=== PATIENT | female | born 1960 | race Caucasian/White ===

== ENCOUNTER 2016-11-17 09:44 | Inpatient (IN) | payer OTHER ==
[~2016-11-17] VITALS: Ht 177.8 cm; Wt 129.1 kg
[2016-11-17] MEDS ORDERED: DULO1CAP3 PO (10:35)
[2016-11-17] MEDS ORDERED: LISI10TA3 PO (10:35)
[2016-11-17] MEDS ORDERED: CHOL5000 PO (10:35)
[2016-11-18 06:00] VITALS: BP 154/85; PULSE 89; RESP 20; TEMP 98.2; O2SAT 95
[2016-11-18] MEDS ORDERED: DEXAMETHASONE SOD PHOS 20 MG/5 ML VIAL ONE (06:05)
[2016-11-18] MEDS ORDERED: SODIUM CHLOR 0.9% 250 ML INJ 250 ML ONE (06:05)
[2016-11-18] MEDS ORDERED: VANCOMYCIN HCL 1000 MG VIAL ONE (06:05)
[2016-11-18] MEDS ORDERED: ceFAZolin 2 GM PREMIX 50 ML ONE (06:05)
[2016-11-18] MEDS: LACTATED RINGER'S 1000 ML IV SCH (06:10)
[2016-11-18] MEDS ORDERED: GENTAMICIN SULFATE 80 MG/2 ML VIAL ONE (06:23)
[2016-11-18] MEDS ORDERED: MIDAZOLAM HCL 5 MG/5 ML VIAL ONE (06:24)
[2016-11-18] MEDS ORDERED: ceFAZolin 2 GM PREMIX 50 ML IV SCH (06:30)
[2016-11-18] MEDS ORDERED: VANCOMYCIN 1000 MG/NS 250 ML (for <70 kg) IV SCH ×2 (06:30)
[2016-11-18] MEDS ORDERED: ROPIVACAINE PERI-ARTICULAR INJECTION. PERIART SCH ×5 (06:30)
[2016-11-18] MEDS ORDERED: SODIUM CHLORID 0.9% 500 ML IV SCH (06:30)
[2016-11-18] MEDS ORDERED: SODIUM CHLORIDE 0.9% IV SCH ×2 (06:30→10:00)
[2016-11-18] MEDS ORDERED: POVIDONE IODINE 7.5% SCRUB 118 ML BOTTLE TOP SCH (06:30)
[2016-11-18] MEDS ORDERED: METOPROLOL TARTRATE 25 MG TAB PO PRN (06:30)
[2016-11-18] MEDS ORDERED: ceFAZolin 1,000 MG/NS 100 ML IV SCH ×2 (06:30)
[2016-11-18] MEDS ORDERED: INSULIN HUMAN REGULAR 1,000 UNITS/10 ML VIAL SQ PRN (06:30)
[2016-11-18] MEDS ORDERED: DEXAMETHASONE SOD PHOS 20 MG/5 ML VIAL IV ONE (06:30)
[2016-11-18] MEDS ORDERED: TRANEXAMIC ACID IV SCH ×2 (06:30→10:00)
[2016-11-18] MEDS ORDERED: FAMOTIDINE 20 MG/2 ML VIAL ONE (06:31)
--- NOTE | 2016-11-18 06:49 | HHI.DCPOC ---
Discharge Care Plan Diagnosis: (1) Primary localized osteoarthrosis, lower leg (2) Status post total knee replacement, right Your Health Problems Are: Difficulty with ADL Goals to Promote Your Health * To prevent worsening of your condition and complications * To maintain your health at the optimal level Directions to Meet Your Goals Take your medications as prescribed Follow your dietary instruction Follow activity as directed Keep your appointments as scheduled Take your immunizations and boosters as scheduled If your symptoms worsen call your PCP, if no PCP go to Urgent Care Center or Emergency Room Smoking is Dangerous to Your Health. Avoid second hand smoke Call the 24-hour hour crisis hotline for domestic abuse at Kirk Clemens Nov 18, 2016 06:49
--- NOTE | 2016-11-18 06:50 | HHI.FF ---
Face to Face Verification Diagnosis: (1) Primary localized osteoarthrosis, lower leg (2) Status post total knee replacement, right Physical Therapy Gait training, Transfer training, bed to chair Knee: Total knee Right LE Weight Bearing: WB as tolerated Right LE Range of Motion: Active ROM Nursing Nursing: Rupesh teaching, Dressing changes I have seen patient Homa Carias on 11/18/16. My clinical findings support the need for the requested home health care services because: Limited ability to care for self High risk of falls I certify that my clinical findings support that this patient is homebound because: Post-op weakness Unsteady gait/balance Kirk Clemens Nov 18, 2016 06:50
[2016-11-18] MEDS ORDERED: WALKER WHEELS/F1 MIS (06:52)
[2016-11-18] MEDS ORDERED: CPMMACHINE (06:52)
[2016-11-18] MEDS ORDERED: COMMODE 3-IN-11 MIS (06:52)
[2016-11-18] MEDS ORDERED: ACETAMINOPHEN 1000 MG/100 ML VIAL IV ONE (07:37)
--- NOTE | 2016-11-18 08:27 | PD.OP ---
cc: Abel Jones MD Operative Report Date of Surgery: Nov 18, 2016 Preoperative Diagnosis: Right knee severe osteoarthritis Postoperative Diagnosis: Same Procedure: Right total knee arthroplasty Anesthesia: Adductor canal block and general Surgeon: Abel Jones Program Support Clerk(s): JOANN Thornton The surgical procedure was assisted by my Advanced Registered Nurse Practitioner. My TRUST ADVISOR presence was necessary throughout this case for the manipulation and positioning of the surgical extremity. My TRUST ADVISOR was assisting me throughout the duration of this procedure. The skill set of an Advance Registered Nurse Practitioner was medically necessary to complete this procedure. During the surgical case, the cdl service technician was working at the back table and the Advance Registered Nurse Practitioner was directly assisting me. Operation and Findings: IMPLANTS: DePuy Attune: Patella: size 38. Femur, posterior stabilized size 6. Tibia, rotating platform size 6. Tibial insert, rotating platform, posterior stabilized size 5 mm thickness. ESTIMATED BLOOD LOSS: 250 cc TOURNIQUET TIME: 39 minutes at 300 mmHg pressure. JUSTIFICATION FOR PROCEDURE: The patient has end-stage osteoarthritis to the knee. There is an attached conservative measures pathway form in the chart that describes the nonoperative measures that were undertaken prior to consideration of surgical management. The patient understood the risks and benefits of surgical management. See my office notes for further details PROCEDURE: The patient was brought back to the operative theatre. Adequate anesthesia was obtained. The patient received intravenous vancomycin and Ancef. The lower extremity was prepped and draped in the usual sterile fashion.The leg was exsanguinated, the tourniquet was raised. A standard anterior incision was performed followed by medial parapatellar arthrotomy was performed. End-stage arthritis was identified. Osteotomy of the patella was performed. We drilled holes for the patella. We trialed the patella component. We placed an intramedullary guide into the distal femur. We ultimately resected 11 mm off of the distal femur in 5 degrees of valgus. The remnants of the ACL and PCL were resected. Osteotomy of the proximal tibia was performed, resecting 5 mm off of the medial side. This was done with 3 degrees of posterior slope using an extramedullary guide. The distal end of the guide was placed in the mid aspect of the ankle. The femur was sized, and four chamfer cuts were completed in 3 of external rotation. We then cut the central box in the distal femur to replace the PCL. We resected the remnants of the menisci and removed osteophytes off of the femur and tibia. We then trialed the knee. We punched the tibia for the keel, and then used standard technique to cement in components. Excess cement was removed. We trialed the knee again and the final polyethylene thickness was chosen to provide extension to 0 degrees, and flexion of 140 degrees to gravity. The ligaments were appropriately balanced. Lateral release was necessary to obtain excellent patellofemoral tracking. The tourniquet was released and adequate hemostasis was obtained. An intra- articular injection of a ropivacaine cocktail was injected. The posterior knee was inspected for excess cement, which was removed. The final polyethylene was put into position after thorough irrigation. We then closed deep fascia with a #2 Stratafix followed by skin with 2-0 Vicryl followed by jorge. Postop plan is to weight-bear as tolerated. DVT prophylaxis will be performed with Stewart, LUCINDA yeboah, early mobilization, and Lovenox followed by aspirin. Abel Jones MD Nov 18, 2016 08:27
[2016-11-18] MEDS ORDERED: NORC5TAB PO (08:28)
[2016-11-18] MEDS ORDERED: ASPI325T PO (08:28)
[2016-11-18] MEDS ORDERED: ENOX40P SQ (08:28)
[2016-11-18] MEDS ORDERED: ZOLPIDEM TARTRATE 5 MG TAB PO PRN (08:30)
[2016-11-18] MEDS ORDERED: ALUMINUM/MAGNESIUM/SIMETH 30 ML CUP PO PRN (08:30)
[2016-11-18] MEDS ORDERED: NALOXONE HCL 0.4 MG/ML AMP IV PRN (08:30)
[2016-11-18] MEDS ORDERED: MAGNESIUM HYDROXIDE SUSP 30 ML CUP PO PRN (08:30)
[2016-11-18] MEDS ORDERED: MORPHINE SULFATE 4 MG/ML INJ IV PUSH PRN (08:30)
[2016-11-18] MEDS ORDERED: ONDANSETRON HCL 4 MG/2 ML VIAL IVP PRN (08:30)
[2016-11-18] MEDS ORDERED: SODIUM CHLORIDE 0.9% FLUSH 5 ML FLUSH IVF PRN (08:30)
[2016-11-18] MEDS ORDERED: diphenhydrAMINE HCL 50 MG/ML VIAL IV PRN (08:30)
[2016-11-18] MEDS ORDERED: BISACODYL 10 MG SUPP PR PRN (08:30)
[2016-11-18] MEDS ORDERED: Post-op Orders (for Pharmacy) MISC XX ONE (08:30)
[2016-11-18] MEDS ORDERED: fentaNYL CITRATE 250 MCG/5 ML AMP ONE (09:00)
[2016-11-18] MEDS: LISINOPRIL 10 MG TAB PO SCH (09:00)
[2016-11-18] MEDS: SODIUM CHLORIDE 0.9% FLUSH 5 ML FLUSH IVF SCH ×2 (09:00→20:32)
[2016-11-18] MEDS: DULoxetine HCl DR 60 MG CAP PO SCH (09:00)
[2016-11-18] MEDS ORDERED: *morphine SULFATE 8 MG/ML PERIprocedure ONLY ONE ×2 (09:13→09:44)
[2016-11-18] MEDS: SODIUM CHLOR 0.9% 1000 ML INJ 1,000 ML IV SCH ×3 (09:20→22:41)
--- NOTE | 2016-11-18 09:47 | RADRPT ---
EXAM DATE/TIME: 11/18/2016 09:21 [facility] COMPARISON: No previous studies available for comparison. INDICATIONS : Total right knee replacement. MEDICAL HISTORY : Osteoarthritis. SURGICAL HISTORY : None. ENCOUNTER: Initial ACUITY: 1 day PAIN SCORE: Non-responsive. LOCATION: Right knee FINDINGS: Right total knee arthroplasty is present. Hardware is intact. Alignment is anatomic. CONCLUSION: Satisfactory appearance post right TKA Ross Palafox MD on November 18, 2016 at 9:43 Board Certified Radiologist. This report was verified electronically.
[2016-11-18 10:38] VITALS: BP 153/82; PULSE 85; RESP 17; TEMP 95.3; O2SAT 95
[2016-11-18] MEDS: ACETAMINOPHEN/HYDROcodone 325 MG/5 MG TAB PO PRN ×2 (10:43→17:42)
[2016-11-18] MEDS ORDERED: BUPIVACAINE HCL PF 0.5% 30 ML VIAL NB ONE (12:51)
[2016-11-18] MEDS ORDERED: ONDANSETRON HCL 4 MG/2 ML VIAL IV PUSH ONE (15:06)
[2016-11-18] MEDS ORDERED: PROPOFOL 200 MG/20 ML AMP IV ONE (15:06)
[2016-11-18] MEDS ORDERED: NEOSTIGMINE 3 MG/3 ML SYR IV ONE (15:06)
--- NOTE | 2016-11-18 15:22 | PD.CONS ---
HPI Service [facility] Consult Requested By Dr. Jones Reason for Consult Medical management Primary Care Physician Heather Nash MD Diagnoses: History of Present Illness This is a pleasant 56-year-old female with past medical history of obesity and hypertension who is admitted after undergoing a right total knee arthroplasty today with Dr. Jones for the indication of osteoarthritis. Today the patient states that her pain has been controlled. She states she has been in good physical health recently with controlled blood pressure. Review of Systems Except as stated in HPI: all other systems reviewed are Neg Past Family Social History Allergies: Coded Allergies: Bactrim (Verified Allergy, Severe, MOUTH BLISTERS, 11/18/16) Macrodantin (Verified Allergy, Severe, SWELLING, 11/18/16) Past Medical History Hypertension Depression Obesity Reported Medications As per med rec Family History Reviewed and noncontributory Social History She does not smoke or drink. Physical Exam Vital Signs Vital Signs Date Time Temp Pulse Resp B/P Pulse Ox O2 Delivery O2 Flow Rate FiO2 11/18/16 11:45 2 11/18/16 10:38 95.3 85 17 153/82 95 11/18/16 10:05 97.7 87 16 156/88 95 Nasal Cannula 3 11/18/16 09:45 96 16 156/86 95 Nasal Cannula 3 11/18/16 09:30 87 15 161/85 95 Nasal Cannula 4 11/18/16 09:15 89 15 150/85 93 Nasal Cannula 4 11/18/16 08:53 97.6 96 15 187/93 94 Nasal Cannula 4 11/18/16 06:44 87 14 123/69 98 11/18/16 06:30 81 14 117/74 99 11/18/16 06:20 82 16 122/78 97 11/18/16 06:20 97 Nasal Cannula 3 11/18/16 06:00 98.2 89 20 154/85 95 Physical Exam GENERAL: Well-nourished, well-developed patient. SKIN: Warm and dry. HEAD: Normocephalic. EYES: No scleral icterus. No injection or drainage. NECK: Supple, trachea midline. No JVD or lymphadenopathy. CARDIOVASCULAR: Regular rate and rhythm without murmurs, gallops, or rubs. RESPIRATORY: Breath sounds equal bilaterally. No accessory muscle use. GASTROINTESTINAL: Abdomen soft, non-tender, nondistended. EXTREMITIES: No cyanosis, or edema. NEUROLOGICAL: Awake, alert, and oriented x 3. Non-focal. Laboratory Laboratory Tests Test 11/18/16 05:58 Blood Type O POSITIVE Antibody Screen NEGATIVE Blood Bank Comment Assessment and Plan Assessment and Plan -Status post right total knee arthroplasty. Management per Dr. Dickinson. -Hypertension. Continue lisinopril. -Depression. Continue Cymbalta. -Lovenox for DVT prophylaxis. Deborah Hernandez MD Nov 18, 2016 15:21
[2016-11-18 16:20] VITALS: BP 125/66; PULSE 102; RESP 16; TEMP 95.4; O2SAT 93
[2016-11-18 20:19] VITALS: BP 121/69; PULSE 99; RESP 19; TEMP 97.8; O2SAT 97
[2016-11-18] MEDS ORDERED: SENNOSIDES 8.6 MG TAB PO SCH (22:15)
[2016-11-18] MEDS: MAGNESIUM HYDROXIDE SUSP 30 ML CUP PO SCH (22:39)
[2016-11-19 00:21] VITALS: BP 103/58; PULSE 104; RESP 18; TEMP 96.5; O2SAT 92
[2016-11-19 04:15] VITALS: BP 119/78; PULSE 104; RESP 18; TEMP 97.9; O2SAT 95
[2016-11-19] MEDS: LACTATED RINGER'S 1000 ML IV SCH (06:30)
[2016-11-19 07:01] LABS: HEMATOCRIT 32.3 % (35.0-46.0); MEAN CELL VOLUME 92.6 FL (80.0-100.0); MEAN CORPUSCULAR HEMOGLOBIN 31.3 PG (27.0-34.0); MEAN CORPUSCULAR HGB CONC 33.8 % (32.0-36.0); PLATELET COUNT 223 TH/MM3 (150-450); RED BLOOD COUNT 3.49 MIL/MM3 (4.00-5.30); RED CELL DISTRIBUTION WIDTH 13.1 % (11.6-17.2); REVIEW FLAG FINAL; WHITE BLOOD COUNT 8.8 TH/MM3 (4.0-11.0)
[2016-11-19] MEDS ORDERED: DEXAMETHASONE SOD PHOS 20 MG/5 ML VIAL IV ONE (07:45)
[2016-11-19 08:00] VITALS: BP 127/75; PULSE 99; RESP 18; TEMP 97.8; O2SAT 98
[2016-11-19] MEDS ORDERED: ENOXAPARIN SODIUM 40 MG/0.4 ML SYRINGE SQ SCH (08:00)
[2016-11-19] MEDS: LISINOPRIL 10 MG TAB PO SCH (08:07)
[2016-11-19] MEDS: MAGNESIUM HYDROXIDE SUSP 30 ML CUP PO SCH (08:07)
[2016-11-19] MEDS: DULoxetine HCl DR 60 MG CAP PO SCH (08:07)
[2016-11-19] MEDS: SODIUM CHLORIDE 0.9% FLUSH 5 ML FLUSH IVF SCH (08:08)
[2016-11-19] MEDS: ACETAMINOPHEN/HYDROcodone 325 MG/5 MG TAB PO PRN ×2 (08:54→13:32)
[2016-11-19 12:15] VITALS: BP 130/67; PULSE 101; RESP 16; TEMP 95.5; O2SAT 94
--- NOTE | 2016-11-19 13:00 | PD.ORT.PN ---
Subjective Post Op Day #: 1 Subjective Remarks Patient OOB in chair with minimal pain. Moderate soreness. Patient has not voided yet and needs to before discharge. Patient requesting to go home today. Objective Vitals Vital Signs Date Time Temp Pulse Resp B/P Pulse Ox O2 Delivery O2 Flow Rate FiO2 11/19/16 12:15 95.5 101 16 130/67 94 11/19/16 08:00 97.8 99 18 127/75 98 11/19/16 07:30 Room Air 11/19/16 04:15 97.9 104 18 119/78 95 11/19/16 00:21 96.5 104 18 103/58 92 11/18/16 20:19 97.8 99 19 121/69 97 11/18/16 16:20 95.4 102 16 125/66 93 I/O 11/18/16 11/18/16 11/18/16 11/19/16 11/19/16 11/19/16 07:00 15:00 23:00 07:00 15:00 23:00 Intake Total 1252 ml 840 ml 1710 ml Output Total 400 ml 750 ml 550 ml Balance 852 ml 90 ml 1160 ml Intake Oral 840 ml 240 ml IV Total 252 ml 1470 ml Other 1000 ml Output Urine Total 200 ml 750 ml 550 ml Estimated Blood Loss 200 ml # Bowel Movements 0 0 Result Diagram: 11/19/16 0623 Procedures Right TKA Objective Remarks The patient's dressing was changed with scant serosanguineous drainage. Incision is well approximated with surgical clips intact. No redness or s/s of infection. Mild ecchymosis and hyperemia. No calf tenderness or swelling. + SILT. EHL/TA/G intact. 2+ pedal pulse. Moderate LE swelling. Assessment & Plan Ortho Post Op Day #: 1 Problem List: Assessment and Plan POD #1: Right TKA 1. WBAT RLE 2. Lovenox for DVT prophylaxis 3. Ice to the right knee PRN 4. Stable for discharge home with home health today. Kirk Clemens Nov 19, 2016 13:00
[2016-11-19] MEDS ORDERED: DOCUSATE SODIUM 100 MG CAP PO SCH (21:00)
[2016-11-19] MEDS ORDERED: MULTIVITAMINS/MINERALS THERAPEUTIC TAB PO SCH (21:00)
--- NOTE | 2016-11-22 21:08 | HHI.DS ---
Discharge Summary Admission Date Nov 18, 2016 at 05:35 Discharge Date: Nov 19, 2016 Admitting Diagnosis Primary localized OA, lower leg Status post total knee replacement, right Diagnosis: (1) Primary localized osteoarthrosis, lower leg Diagnosis: Principal (2) Status post total knee replacement, right Diagnosis: Principal Procedures Right TKA Brief History This is a 56 year old female patient with severe OA of the right knee CBC/BMP: 11/19/16 0623 PE at Discharge The patient's dressing was changed with scant serosanguineous drainage. Incision is well approximated with surgical clips intact. No redness or s/s of infection. Mild ecchymosis and hyperemia. No calf tenderness or swelling. + SILT. EHL/TA/G intact. 2+ pedal pulse. Moderate LE swelling. Hospital Course The patient was admitted to the hospital for severe OA of the right knee to have a right total knee arthroplasty. The patient's surgery went well without complication. The patient had good pain management with oral medication. The patient was WBAT. The patient tolerated a normal diet. The patient was discharged home with home health and will f/u with Dr. Jones in 1-2 weeks. Pt Condition on Discharge: Stable Discharge Disposition: Disch w/ Home Health Serv Discharge Instructions Diet Instructions: As Tolerated, No Restrictions Activities You Can Perform: Weight Bearing as Evens Activities to Avoid: Strenuous Activity Follow up Referrals: Orthopedics with Abel Jones MD [facility]/ with Nurse supervisor electronics assembly [phone] New Medications: Aspirin (Aspirin) 325 Mg Tab 325 MG PO DAILY Start Aspirin after Lovenox is completed. Prevent Blood Clot # 30 Ref 0 TAB Commode 3-in-1 (Commode 3-in-1) 1 Mis Mis 1 EA .ROUTE DIRECTED #1 Ref 0 EA CPM-Continuous Passive Motion Machine (CPM-Continuous Passive Motion Machine) 1 Ea Device 1 EA .ROUTE DIRECTED #1 Ref 0 EA Enoxaparin Inj (Lovenox Inj) 40 Mg/0.4 Ml Syr 40 MG SQ DAILY Start Aspirin after Lovenox is completed. Blood Clot Prevention # 10 Ref 0 SYRINGE Hydrocodone-Acetaminophen (Derry) 5-325 mg Tab 1-2 TAB PO Q4H PRN PAIN #60 Ref 0 TAB Walker with Front Wheels (Walker with Front Wheels) 1 Mis Mis 1 EA .ROUTE DIRECTED #1 Ref 0 EA Continued Medications: Cholecalciferol (Vitamin D3) 5,000 Unit Cap 5000 UNITS PO DAILY Nutritional Supplement #1 Ref [address] (Duloxetine DR) 60 Mg Capdr 60 MG PO DAILY #30 Ref 0 CAP Lisinopril (Lisinopril) 10 Mg Tab 10 MG PO DAILY #30 Ref 0 TAB Kirk Clemens Nov 22, 2016 21:08
== END 2016-11-19 15:59 | disposition home health service (06) | DRG 470 ==
LOC: HSDI 11-18 05:35 → N06B 11-18 10:17
PROVIDERS: ADMIT Orthopaedic Surgery; ATTEND Orthopaedic Surgery
PROC: 3E0T3BZ Introduction of Anesthetic Agent into Peripheral Nerves and Plexi, Percutaneous Approach (ICD-10-PCS; 2016-11-18)
PROC: 0SRC0J9 Replacement of Right Knee Joint with Synthetic Substitute, Cemented, Open Approach (ICD-10-PCS; principal; 2016-11-18 06:48)
DX: M17.11 Unilateral primary osteoarthritis, right knee (principal); Z68.41 Body mass index [BMI] 40.0-44.9, adult; E66.9 Obesity, unspecified; I10 Essential (primary) hypertension; K21.9 Gastro-esophageal reflux disease without esophagitis; F32.9 Major depressive disorder, single episode, unspecified; Z87.891 Personal history of nicotine dependence
CPT/HCPCS: 73560; 85027; 86850; 86900; 86901; 94150; C1776; J0131; J0171; J0690; J0735; J1100; J1580; J1650; J1885; J2250; J2270; J2405; J2710; J2795; J3010; J3370; J7030; J7050; J7120; L1830